=== PATIENT | male | born 1970 | race Caucasian/White ===

== ENCOUNTER 2019-02-04 02:22 | Emergency (ER) | payer SELFPAY ==
[2014-10-01 19:05] VITALS: BP 190/89
--- NOTE | 2019-02-04 02:43 | PHYS DOC ---
Past Medical History Past Medical History: No Pertinent History Past Surgical History: Other Additional Past Surgical Histo: skin lesion removal Alcohol Use: Rarely Drug Use: None Adult General Chief Complaint Chief Complaint: CPR/FULL ARREST HPI HPI Patient is a 48 year old SEE MDM OVERALL HX [place] BY ACUITY Review of Systems Review of Systems [place] BY ACUITY Allergies Allergies Allergies Coded Allergies Type Severity Reaction Last Updated Verified naproxen Allergy Intermediate Rash 10/01/14 Yes Physical Exam Physical Exam Constitutional: OBTUNDED HENT: Normocephalic, atraumatic, bilateral external ears normal, ET TUBE IN PLACE. Eyes: FIXED DILATED Neck: Normal range of motion, no tenderness, supple, no stridor. [] Cardiovascular:PULSELESS] Lungs & Thorax: Bilateral breath sounds clear to auscultation CLEAR WITH BAGGING. NO RESP EFFORT Abdomen: soft, no tenderness, no masses, no pulsatile masses. [] Skin: SKIN LESION LEFT FACE APPEARS OLD Extremities: No tenderness, no cyanosis, no clubbing, ROM intact, no edema. [] Neurologic:NO MOVEMENT GCS 3, FIXED DILATED PUPILS EKG EKG [] Radiology/Procedures Radiology/Procedures [] Course & Med Decision Making Course & Med Decision Making Pertinent Labs and Imaging studies reviewed. (See chart for details) []48-year-old male brought in by ambulance. Cardiac arrest Patient was found down next to his bed according to the paramedics downtime was at least 20 minutes prior to them arriving they worked on him for 30 minutes, they shocked V. tach 1 time they gave multiple doses of epinephrine they never got ROSC, at one point the end-tidal CO2 did rise however they never did get a pulse back. They intubated him 8-0 tube they said it was an easy airway. Patient had a narcotic prescription so they also given a milligram of Narcan as well. ER course: Patient was brought into the room 1 stat I evaluated the patient immediately confirmed airway placement with bilateral breath sounds, good chest excursion no sounds in the epigastric area. We did CPR right away we did multiple pulse checks patient never regained a pulse. There was one rhythm change where there was a wide-complex tachycardia with a rate in the 190s so we did shock at one time at 200 J result was asystole again there was. She PE A with rates around 30 I did a bedside cardiac ultrasound there was NO TAMPONADE, they're essentially was cardiac standstill. Pupils were fixed and dilated Blood sugar was 102 we gave amiodarone we gave epi we gave bicarbonate AFTER 50 MINUTES OF CPR TOTAL BETWEEN US AND MEDICS, WE CALLED THE CODE 222 AM. FAMILY NOTIFIED CONDOLENCES GIVEN. Critical care time was 35 minutes exclusive of procedures. Dragon Disclaimer Dragon Disclaimer This electronic medical record was generated, in whole or in part, using a voice recognition dictation system. Departure Departure Impression: Primary Impression: Cardiac arrest Disposition: 20 Condition: Referrals: NO PCP (PCP) REED LOGAN MD Feb 04, 2019 02:43
[2019-02-04] MEDS ORDERED: EPINEPHrine SYRINGE 1 MG/10 ML SYRINGE ONE (12:00)
[2019-02-04] MEDS ORDERED: AMIODARONE 150 MG/3 ML VIAL ONE (12:00)
[2019-02-04] MEDS ORDERED: SODIUM BICARB ADULT 8.4% 50 MEQ/50 ML DISP.SYRIN. ONE (12:00)
== END 2019-02-04 02:32 | disposition expired ==
LOC: ER 02:22
DX: I46.9 Cardiac arrest, cause unspecified (principal); L98.9 Disorder of the skin and subcutaneous tissue, unspecified; Z88.8 Allergy status to other drugs, medicaments and biological substances
CPT/HCPCS: 31500; 92950; 99291; J0171; J0282